=== PATIENT | male | born 1960 | race Caucasian/White ===

== ENCOUNTER 2021-10-24 07:24 | Emergency (ER) | payer OTHER ==
[~2021-10-24] VITALS: Ht 162.6 cm; Wt 65.8 kg
--- NOTE | 2021-10-24 07:25 | NUR ---
PT PADMA VIA GURNEY TO BED 10.
[2021-10-24 07:35] VITALS: BP 150/88
[2021-10-24] MEDS ORDERED: LIDOCAINE MPF 1% 5 ML ONE (09:31)
[2021-10-24] MEDS ORDERED: BACI1PAC6 TP (09:44)
[2021-10-24] MEDS ORDERED: ACET-10509 PO (09:44)
[2021-10-24] MEDS ORDERED: BACITRACIN OINT 500 UNITS/GM PKT TP ONE (09:45)
[2021-10-24] MEDS ORDERED: ACETAMINOPHEN EXTRA STRENGTH 500 MG TAB PO ONE (09:45)
--- NOTE | 2021-10-24 10:10 | NUR ---
CLEANED WOUND ON PT'S JAW/CHIN USING SALINE AND BETADINE SOLUTION. DRESSED WOUND USING 1X3 BANDAID. ERMD NOTIFIED.
[2021-10-24 10:23] VITALS: BP 137/70
--- NOTE | 2021-10-24 10:23 | NUR ---
Patient discharged with v/s stable. Written and verbal after care instructions given and explained. Patient alert, oriented and verbalized understanding of instructions. Ambulatory with steady gait. All questions addressed prior to discharge. ID band removed. Patient advised to follow up with PMD. Rx of MOTRIN, BACITRACIN given. Patient educated on indication of medication including possible reaction and side effects. Opportunity to ask questions provided and answered.
== END 2021-10-24 10:23 | disposition home or self-care (01) ==
LOC: MED 07:24
DX: S01.81XA Laceration without foreign body of other part of head, initial encounter (principal); S80.212A Abrasion, left knee, initial encounter; S80.211A Abrasion, right knee, initial encounter; N18.6 End stage renal disease; Z98.890 Other specified postprocedural states; Z79.2 Long term (current) use of antibiotics; Z79.899 Other long term (current) drug therapy; W01.198A Fall on same level from slipping, tripping and stumbling with subsequent striking against other object, initial encounter; Y92.89 Other specified places as the place of occurrence of the external cause; Y93.B9 Activity, other involving muscle strengthening exercises; Y99.8 Other external cause status
CPT/HCPCS: 12011; 70450; 72125; 99284; J2001

== ENCOUNTER 2021-10-30 08:42 | Emergency (ER) | payer OTHER ==
[~2021-10-30] VITALS: Ht 172.7 cm; Wt 66.7 kg
[~2021-10-30 08:42] MED LIST: ACET-10509 PO; BACI1PAC6 TP
[2021-10-30 08:54] VITALS: BP 173/90
--- NOTE | 2021-10-30 09:33 | NUR ---
NO NURSING INTERVENTIONS ORDERED NO ASSESSMENT DONE.
[2021-10-30 09:34] VITALS: BP 160/86
--- NOTE | 2021-10-30 09:35 | NUR ---
Patient discharged with v/s stable. Written and verbal after care instructions given FOR SUTURE REMOVAL and explained. Patient verbalized understanding. Ambulatory with steady gait. All questions addressed prior to discharge. Advised to follow up with PMD.
== END 2021-10-30 09:35 | disposition admitted as inpatient to this hospital (09) ==
LOC: MED 08:42
DX: S01.81XD Laceration without foreign body of other part of head, subsequent encounter (principal); Z48.02 Encounter for removal of sutures; I10 Essential (primary) hypertension; Z87.448 Personal history of other diseases of urinary system; Z98.890 Other specified postprocedural states; Z79.2 Long term (current) use of antibiotics; Z79.899 Other long term (current) drug therapy; W01.0XXD Fall on same level from slipping, tripping and stumbling without subsequent striking against object, subsequent encounter
CPT/HCPCS: 99281

== ENCOUNTER 2021-12-23 18:24 | Emergency (ER) | payer OTHER ==
[~2021-12-23] VITALS: Ht 170.2 cm; Wt 69.4 kg
[2021-12-23 18:40] VITALS: BP 127/73
--- NOTE | 2021-12-23 18:50 | NUR ---
TO ER BED 7
[2021-12-23] MEDS ORDERED: LIDOCAINE/EPI 1% 1:100000 20 ML VIAL INJ ONE (19:00)
--- NOTE | 2021-12-23 19:15 | NUR ---
Patient report given to KVNG Galvez. Transfer of care at this time.
[2021-12-23 19:22] LABS: BASOPHILS % (AUTO) 1.2 % (0.0-2.0); EOSINOPHILS # (AUTO) 0.1 K/uL (0-0.4); EOSINOPHILS % (AUTO) 2.6 % (0.0-4.0); HEMOGLOBIN 11.5 g/dL (12.0-18.0); LYMPHOCYTES # (AUTO) 0.2 K/uL (2.0-11.5); LYMPHOCYTES % (AUTO) 5.5 % (20.5-51.1); MEAN CORPUSCULAR HEMOGLOBIN 30 pg (27-31); MEAN CORPUSCULAR HGB CONC 33 g/dL (33-37); MEAN CORPUSCULAR VOLUME 90.1 fL (80-94); MONOCYTES # (AUTO) 0.3 K/uL (0.8-1.0); MONOCYTES % (AUTO) 9.7 % (1.7-9.3); NEUTROPHILS # (AUTO) 2.7 K/uL (1.8-7.7); PLATELET COUNT (AUTO) 72 K/uL (140-450); RED BLOOD CELL COUNT(AUTO) 3.89 MIL/uL (4.20-6.10); WHITE BLOOD COUNT (AUTO) 3.3 K/uL (4.8-10.8)
--- NOTE | 2021-12-23 19:22 | NUR ---
pt is awake and alert. all needs met at this time. md explained procedure at bedside, consent obtained.
--- NOTE | 2021-12-23 19:32 | NUR ---
ermd at bedside for procedure.
[2021-12-23 19:35] LABS: ALBUMIN 3.4 g/dL (3.4-5.0); ANION GAP 14.6 (8-16); CARBON DIOXIDE 29.3 mmol/L (21-32); POTASSIUM 4.9 mmol/L (3.5-5.1); TOTAL BILIRUBIN 0.9 mg/dL (0.0-1.0)
--- NOTE | 2021-12-23 19:41 | NUR ---
61 y/o male BIB self for c/o of abd distention. Pt states that he gets about 10 L removed from his abdomen each Monday and this past morning, they were only able to remove 5L d/t machine malfunction. He was instructed by his PCP to come to the ER for another paracentesis. Last paracentesis on 12/20. pmhx: cirrhosis of liver, ascites, ESRD on h/d av shunt to left arm. MWF. Gout allergies: NKA Home meds: midodrine, allopurinol.
[2021-12-23 19:50] LABS: CREATININE 6.6 mg/dL (0.6-1.3)
--- NOTE | 2021-12-23 20:51 | NUR ---
3 1/2 L drained from abd. pt tolerated well. vocalizes relief. denies pain. vss.
--- NOTE | 2021-12-23 22:04 | NUR ---
site cont to drain, 1l output.
--- NOTE | 2021-12-23 23:24 | NUR ---
pt is sitting up in bed. site continues to drain.
--- NOTE | 2021-12-24 01:00 | NUR ---
pt given food per request
--- NOTE | 2021-12-24 01:25 | NUR ---
total of 6L drained from pt.
[2021-12-24 01:30] VITALS: BP 107/75
--- NOTE | 2021-12-24 01:30 | NUR ---
Patient discharged with v/s stable. Written and verbal after care instructions given and explained. Patient verbalized understanding. Ambulatory with steady gait. All questions addressed prior to discharge. Advised to follow up with PMD.
== END 2021-12-24 01:30 | disposition home or self-care (01) ==
LOC: MED 18:24
DX: K74.60 Unspecified cirrhosis of liver (principal); R18.8 Other ascites; N18.6 End stage renal disease; Z99.2 Dependence on renal dialysis; Z98.890 Other specified postprocedural states; Z79.899 Other long term (current) drug therapy
CPT/HCPCS: 36415; 49083; 80053; 83880; 85025; 99285; J2001

== ENCOUNTER 2022-07-21 19:57 | Inpatient (IN) | payer OTHER ==
[~2022-07-21] VITALS: Ht 172.7 cm; Wt 52.6 kg
[~2022-07-21 19:57] MED LIST changes: +BACI-416 TP; -BACI1PAC6 TP
[2022-07-21 19:59] VITALS: BP 158/86
--- NOTE | 2022-07-21 20:06 | NUR ---
PT BIBA BLS ER BED 7
--- NOTE | 2022-07-21 20:06 | NUR ---
PT TO BED 7
--- NOTE | 2022-07-21 20:46 | NUR ---
PT BIB ALS RUN C/O DIFFUSE ABDOMINAL PAIN WITH N/V X2 DAYS
[2022-07-21 21:16] LABS: BASOPHILS # (AUTO) 0.1 K/uL (0.00-0.22); BASOPHILS % (AUTO) 2.8 % (0.0-2.0); EOSINOPHILS % (AUTO) 0.9 % (0.0-4.0); HEMATOCRIT 35.5 % (36-52); HEMOGLOBIN 11.5 g/dL (12.0-18.0); LYMPHOCYTES # (AUTO) 0.1 K/uL (2.0-11.5); LYMPHOCYTES % (AUTO) 2.4 % (20.5-51.1); MEAN CORPUSCULAR HEMOGLOBIN 29 pg (27-31); MEAN CORPUSCULAR HGB CONC 32 g/dL (33-37); MEAN CORPUSCULAR VOLUME 89.8 fL (80-94); MONOCYTES # (AUTO) 0.2 K/uL (0.8-1.0); MONOCYTES % (AUTO) 5.3 % (1.7-9.3); NEUTROPHILS # (AUTO) 3.2 K/uL (1.8-7.7); NEUTROPHILS % (AUTO) 88.6 % (42.2-75.2); PLATELET COUNT (AUTO) 284 K/uL (140-450); RED BLOOD CELL COUNT(AUTO) 3.95 MIL/uL (4.20-6.10); RED CELL DISTRIBUTION WIDTH 19.2 % (11.6-13.7); WHITE BLOOD COUNT (AUTO) 3.6 K/uL (4.8-10.8)
[2022-07-21 21:50] LABS: ALBUMIN 3.9 g/dL (3.4-5.0); CARBON DIOXIDE 25.9 mmol/L (21-32); CREATININE 1.2 mg/dL (0.6-1.3); POTASSIUM 5.9 mmol/L (3.5-5.1); TOTAL BILIRUBIN 0.3 mg/dL (0.0-1.0)
[2022-07-21] MEDS ORDERED: NACL 0.9% 1,000 ML IV ONE (22:10)
[2022-07-21] MEDS ORDERED: ONDANSETRON 4 MG/2 ML VIAL IVP ONE (22:10)
--- NOTE | 2022-07-22 00:06 | NUR ---
TO CT VIA [facility]
--- NOTE | 2022-07-22 00:26 | NUR ---
PT BACK FROM CT
[2022-07-22] MEDS ORDERED: CALCIUM GLUCONATE 10% 1,000 MG in NACL 0.9% 50 ML IV ONE (02:30)
--- NOTE | 2022-07-22 02:33 | NUR ---
anderson sent to lab and received by computer lab aide
[2022-07-22] MEDS ORDERED: NACL 0.9% 1,000 ML IV ONE (02:35)
[2022-07-22] MEDS ORDERED: KETOROLAC 15 MG/ML VIAL IVP ONE (02:40)
[2022-07-22] MEDS ORDERED: CALCIUM CHLORIDE 10% 100 MG/ML SYR IVP ONE (02:50)
--- NOTE | 2022-07-22 04:20 | NUR ---
Patient appears to be resting comfortably in bed. Vital Signs within normal limits. Respirations even and unlabored. Safety measures are in place and attached to the equipment monitor phototypesetting in place.
[2022-07-22] MEDS ORDERED: POTASSIUM CHLORIDE 10 MEQ TABER PO PRN (07:10)
[2022-07-22] MEDS ORDERED: ONDANSETRON 4 MG/2 ML VIAL IVP PRN (07:10)
[2022-07-22] MEDS ORDERED: DOCUSATE SODIUM 100 MG GELCAP PO PRN (07:10)
[2022-07-22] MEDS ORDERED: ZOLPIDEM 10 MG TAB PO PRN (07:10)
[2022-07-22] MEDS ORDERED: MAG SULF 2000 MG/WATER PREMIX 50 ML IV PRN (07:10)
[2022-07-22] MEDS ORDERED: MORPHINE SULFATE 2 MG/ML SYR IVP PRN (07:10)
[2022-07-22] MEDS ORDERED: LORazepam 2 MG/ML VIAL IVP PRN (07:10)
[2022-07-22] MEDS ORDERED: DEXTROSE 50% 50 ML SYR IVP PRN (07:15)
--- NOTE | 2022-07-22 07:16 | NUR ---
Pt report given to Shelbie CASTLE. Transfer of care at this time.
--- NOTE | 2022-07-22 07:20 | NUR ---
Recieved report from KVNG Christianson for transfer of care.
[2022-07-22] MEDS: MORPHINE SULFATE 2 MG/ML SYR IVP PRN ×3 (08:14→21:45)
[2022-07-22] MEDS: BLOOD GLUCOSE MONITORING 1 DEV DEV FS SCH ×4 (08:18→21:29)
[2022-07-22] MEDS: INSULIN LISPRO SLIDING SCALE 100 UNITS/ML VIAL SUBQ PRN (08:19)
[2022-07-22] MEDS ORDERED: MAGN400T61 PO (08:41)
[2022-07-22] MEDS ORDERED: VALG450T PO (08:41)
[2022-07-22] MEDS ORDERED: SODI650T2 PO (08:41)
[2022-07-22] MEDS ORDERED: FLUC200T PO (08:41)
[2022-07-22] MEDS ORDERED: DOCU-299 PO (08:41)
[2022-07-22] MEDS ORDERED: TACR1CAP17 PO (08:41)
[2022-07-22] MEDS ORDERED: PRED5TAB7 PO (08:41)
[2022-07-22] MEDS ORDERED: TAMS0.4C96 PO (08:41)
[2022-07-22] MEDS ORDERED: INSU100V3 SQ (08:41)
[2022-07-22] MEDS ORDERED: APIX5TAB PO (08:41)
[2022-07-22] MEDS ORDERED: K PH1TAB PO (08:41)
[2022-07-22] MEDS ORDERED: SOFO1TAB PO (08:41)
[2022-07-22] MEDS ORDERED: PANT40EC PO (08:41)
[2022-07-22] MEDS ORDERED: CEL250 PO (08:41)
[2022-07-22] MEDS ORDERED: SULF-58 PO (08:41)
[2022-07-22] MEDS ORDERED: ENTE0.5T PO (08:41)
[2022-07-22] MEDS ORDERED: MIRABULK PO (08:42)
--- NOTE | 2022-07-22 09:03 | NUR ---
PER DR BARRIOS, VERBAL ORDER TO COMPLETE ACCUCHECKS FOR PT, BUT DO NOT ADMINISTER INSULIN GOING FORWARD. PRIMARY NURSE PRESENT AND AWARE.
[2022-07-22] MEDS ORDERED: NACL 0.9% 1,000 ML IV SCH (09:10)
--- NOTE | 2022-07-22 09:25 | NUR ---
PATIENT HAS BEEN SCREENED AND CATEGORIZED HIGH NUTRITION RISK. PATIENT WILL BE SEEN WITHIN 1-2 DAYS OF ADMISSION. / REVIEWED BY GINA CHAPARRO RD
--- NOTE | 2022-07-22 10:56 | NUR ---
PT KEYS HANDED TO SISTER JAMAL PER PT REQUEST
--- NOTE | 2022-07-22 12:06 | NUR ---
# 14 FR Reed catheter with 10 ml utilizing sterile technique. Immediate return of 50 ml yellow urine noted. Bedside drainage bag placed below level of bladder. Pt tolerated procedure well.
--- NOTE | 2022-07-22 14:44 | NUR ---
Patient is laying in bed, respirations even and unlabored. All needs met by staff.
--- NOTE | 2022-07-22 15:47 | NUR ---
Dr. Wilson, evaluating patient at bedside. Recieved new orders for gatrographen small bowel series. And to call MD when results are back.
--- NOTE | 2022-07-22 15:47 | NUR ---
IV to right forearm flushed with 0.9% NS. Patient without signs or symptoms of infilltration; no pain, coolness, swelling noted. Morphine 2mg IVP PRN to be given
--- NOTE | 2022-07-22 15:48 | NUR ---
Patient states 7/10 abd pain at this time. Morphine 2mg IVP to be given
--- NOTE | 2022-07-22 18:20 | NUR ---
Dr. Philippe, cv tech, evaluating patient at bedside. Recieved verbal orders for repeat Chemistry. Addendum: 07/22/22 at 1847 by [email or web address] Recieved additional orders for D5W 2 amps of Sodium Bicarb 100 ml/hour for a total of 2 Liters and Albuterol Inhaler 10 mg Q2 hours apart for 3 doses.
[2022-07-22] MEDS ORDERED: ALBUTEROL 0.083% 2.5 MG/3 ML NEBU INH SCH (19:00)
--- NOTE | 2022-07-22 19:17 | NUR ---
Called for Dr. Philippe, geographic information systems manager for clarification of orders, Dr. Boudreaux contact printer dry film. paged.
--- NOTE | 2022-07-22 19:25 | NUR ---
Spoke to Dr. Boudreaux clarified orders for Albuterol. Recieved new orders for discontinue Albuterol and Lokelma 10 GMS PO one dose. Orders carried out.
[2022-07-22] MEDS: SODIUM BICARBONATE 8.4% 100 MEQ in DEXTROSE 5% 1,000 ML IV SCH (19:30)
[2022-07-22] MEDS ORDERED: SODIUM ZIRCONIUM CYCLOSILICATE 10 GM POWD.PACK PO ONE (19:35)
[2022-07-22 19:47] LABS: ALBUMIN 3.5 g/dL (3.4-5.0); ANION GAP 12.1 (8-16); CARBON DIOXIDE 23.9 mmol/L (21-32); CREATININE 1.3 mg/dL (0.6-1.3); TOTAL BILIRUBIN 0.5 mg/dL (0.0-1.0)
--- NOTE | 2022-07-22 20:40 | NUR ---
Patient will be admitted to care of Dr. Solo. Admited to Telemetry. Will go to room 126-B. Belongings list completed. Report to KVNG Wallace.
[2022-07-22] MEDS ORDERED: SODIUM ZIRCONIUM CYCLOSILICATE 10 GM POWD.PACK ONE (21:06)
--- NOTE | 2022-07-22 21:43 | NUR ---
The patient's care was reviewed and supervised by Meghan Lala RN, RN.
[2022-07-22 22:44] VITALS: BP 118/76
[2022-07-23] MEDS: ACETAMINOPHEN 325 MG TAB PO PRN ×2 (01:38→08:31)
[2022-07-23 04:18] VITALS: BP 150/95
[2022-07-23] MEDS: SODIUM BICARBONATE 8.4% 100 MEQ in DEXTROSE 5% 1,000 ML IV SCH (05:24)
[2022-07-23 06:27] LABS: ANION GAP 20.2 (8-16); CREATININE 1.3 mg/dL (0.6-1.3)
--- NOTE | 2022-07-23 06:35 | NUR ---
rn notes patient's last BS 170, remains NPO, running fluids at this time. VSS, denies pain at this time.
[2022-07-23 06:46] LABS: POTASSIUM 6.2 mmol/L (3.5-5.1)
[2022-07-23] MEDS: BLOOD GLUCOSE MONITORING 1 DEV DEV FS SCH ×4 (06:47→21:00)
[2022-07-23 06:51] LABS: BASOPHILS # (AUTO) 0.1 K/uL (0.00-0.22); BASOPHILS % (AUTO) 2.5 % (0.0-2.0); EOSINOPHILS % (AUTO) 0.6 % (0.0-4.0); HEMATOCRIT 34.7 % (36-52); HEMOGLOBIN 11.5 g/dL (12.0-18.0); LYMPHOCYTES # (AUTO) 0.1 K/uL (2.0-11.5); LYMPHOCYTES % (AUTO) 1.7 % (20.5-51.1); MEAN CORPUSCULAR HEMOGLOBIN 29 pg (27-31); MEAN CORPUSCULAR HGB CONC 33 g/dL (33-37); MEAN CORPUSCULAR VOLUME 88.8 fL (80-94); MONOCYTES # (AUTO) 0.2 K/uL (0.8-1.0); MONOCYTES % (AUTO) 5.1 % (1.7-9.3); NEUTROPHILS # (AUTO) 3.5 K/uL (1.8-7.7); NEUTROPHILS % (AUTO) 90.1 % (42.2-75.2); PLATELET COUNT (AUTO) 258 K/uL (140-450); RED CELL DISTRIBUTION WIDTH 18.7 % (11.6-13.7); WHITE BLOOD COUNT (AUTO) 3.9 K/uL (4.8-10.8)
--- NOTE | 2022-07-23 07:13 | NUR ---
ASSUMED CONTINUITY OF CARE. INITIAL ASSESSMENT DONE. SKIN TEAR ON RIGHT FOREARM NOTED. KEEP COMFORTABLE ON BED. CALL LIGHT WITHIN REACH.
[2022-07-23 08:00] VITALS: BP 165/96
--- NOTE | 2022-07-23 08:07 | NUR ---
CALLED RADIOTELEGRAPHER -TRISH REGARDING STAT ORDER OF DR. FOUNTAIN TO TRANSFER PT. TO [facility]. INFORMED CHARGE NURSE -ESTRELLA CALDERON.
--- NOTE | 2022-07-23 08:33 | NUR ---
PRAFUL OVIEDOLABOR CREW SUPERVISOR -TRISH AND INFORMED OF DR. FOUNTAIN STAT ORDER OF PT. TRANSFER TO [facility]. INFORMED CHARGE NURSE ESTRELLA COLE.
[2022-07-23 10:00] VITALS: BP 146/91
--- NOTE | 2022-07-23 10:07 | NUR ---
DR. SADLER CALLED AND ORDERED NGT TO LOW INTERMITTENT SUCTION, PT/PTT STAT, TYPE AND SCREEN STAT. INFORMED CHARGE NURSE ESTRELLA COLE
--- NOTE | 2022-07-23 10:15 | NUR ---
INSERTED NGT WITH ASSISTANCE FROM CHARGE NURSE ESTRELLA COLE. TOLERATED WELL. NO DISCOMFORT NOTED.
--- NOTE | 2022-07-23 10:38 | NUR ---
DR. ANTHONY CALLED AND ORDERED STAT BMP AND 1/2 NS AT 125ML/HR. INFORMED CHARGE NURSE ESTRELLA COLE.
[2022-07-23 11:12] LABS: PROTHROMBIN TIME 10.4 secs (10.8-13.4)
[2022-07-23] MEDS: NACL 0.45% 1,000 ML IV SCH ×2 (11:23→21:17)
--- NOTE | 2022-07-23 11:45 | NUR ---
CALLED DR. SADLER AND INFORMED THAT PT. WANTED TO REMOVE NGT. DR. SADLER SAID TO CALL DR. FOUNTAIN AND MADE HIM AWARE OF PT. REFUSAL OF NGT. INFORMED CHARGE NURSE ESTRELLA COLE.
--- NOTE | 2022-07-23 11:50 | NUR ---
CALLED DR. FOUNTAIN AND INFORMED THAT PT. WANTED TO REMOVED NGT AND DR. SADLER WAS MADE AWARE ALREADY.
--- NOTE | 2022-07-23 11:55 | NUR ---
EXPLAINED PT. ABOUT IMPORTANCE AND USE OF NGT. VERBALIZED UNDERSTANDING BUT INSISTED TO REMOVED NGT. REMOVED NGT. TOLERATED WELL. INFORMED CHARGE NURSE ESTRELLA COLE.
--- NOTE | 2022-07-23 11:56 | NUR ---
ORDER RECEIVED TO START ARRANGEMENTS FOR THE PATIENT TO TRANSFER TO [facility] FOR HLOC/SURGERY. CLINICAL PACKET FAXED TO [facility], PHONE FOR TRANSFER CENTER [phone], FAX [phone]. RN SPOKE WITH MEGHA AT [facility], SHE STATES SHE WILL START WORKING ON FINDING AN ACCEPTING MD AND BED. Addendum: 07/23/22 at 2100 by Ginger Marr RN RN RN AGAIN SPOKE WITH [facility], THEY STATE THAT THE CASE IS STILL BEING REVIEWED AND THAT THEY ARE WAITING FOR THEIR MD'S TO RESPOND.
[2022-07-23 12:00] VITALS: BP 141/95
[2022-07-23 12:58] LABS: ANION GAP 12.6 (8-16); CARBON DIOXIDE 26.3 mmol/L (21-32); CREATININE 1.2 mg/dL (0.6-1.3); POTASSIUM 4.9 mmol/L (3.5-5.1)
--- NOTE | 2022-07-23 13:13 | NUR ---
CALLED DR. ANTHONY AND INFORMED OF BMP STAT RESULTS THAT WAS DONE EARLIER. NA 138, K 4.9, BUN 39, AND CREAT 1.2 WAS READ OVER THE PHONE TO DR. ANTHONY. NO ORDER RECEIVED.
--- NOTE | 2022-07-23 13:47 | NUR ---
FOLLOW UP WITH GUEST SERVICES OFFICER -TRISH ABOUT PT. TRANSFER STAT TO [facility]. ACCORDING TO TRISH, SHE STILL WAITING [facility] TO CALL BACK REGARDING ROOM AVAILABILITY. INFORMED CHARGE NURSE ESTRELLA COLE.
[2022-07-23 16:00] VITALS: BP 148/89
--- NOTE | 2022-07-23 16:57 | NUR ---
PAGED DR. FOUNTAIN REGARDING DR. NAIR REQUEST TO CONTINUE PT. MEDICATIONS FOR TRANSPLANT -PROGRAF AND CELLCEPT. DR. FOUNTAIN PAGED BACK ORDERED TO CONTINUE PROGRAF AND CELLCEPT, NPO EXCEPT MEDS. INFORMED CHARGE NURSE ESTRELLA COLE.
--- NOTE | 2022-07-23 17:00 | NUR ---
INFORMED DR. FOUNTAIN THAT DIRECTOR RETIREMENT STILL WAITING FOR [facility] TO CALL BACK REGARDING ROOM AVAILABILITY.
--- NOTE | 2022-07-23 17:35 | NUR ---
FOLLOW UP AGAIN WITH MIDDLE SCHOOL FOOTBALL COACH -TRISH REGARDING PT. TRANSFER TO [facility]. PER TRISH, STILL WAITING FOR [facility] TO CALL BACK FOR ROOM AVAILABILITY. INFORMED CHARGE NURSE.
--- NOTE | 2022-07-23 19:20 | NUR ---
BEDSIDE REPORT GIVEN TO TAIWO COLE. IVF INFUSING WELL. IN STABLE CONDITION.
[2022-07-23 20:00] VITALS: BP 142/82
--- NOTE | 2022-07-23 20:00 | NUR ---
NURSE REPORT REPORT OBTAINED FROM [facility] NURSE SALINAS NICHOLS AND THIS NURSE ASSUMED CARE OF PATIENT. VSS. AFEB. NO C/O PAIN OR DISCOMFORT. PATIENT AWAITING TRANSFER TO HIGHER LEVEL OF CARE- [facility].
[2022-07-23] MEDS: MYCOPHENOLATE 250 MG CAP PO SCH (21:00)
[2022-07-23] MEDS ORDERED: TACROLIMUS 0.5 MG CAP PO SCH (21:00)
[2022-07-23] MEDS ORDERED: TACROLIMUS 0.5 MG CAP ONE (21:15)
--- NOTE | 2022-07-23 22:30 | NUR ---
COMMUNICATION DR SADLER HAD CALLED AND ASKED WHY THE PATIENT HAVE NOT BEEN TRANSFERRED TO [facility]. WHEN TALKING TO CHARGE NURSE, THE YARN TEXTURE MACHINE OPERATOR HAD SENT REQUEST TO [facility] AND NO ROOM HAVE BEEN GIVEN. SOON [facility] GIVES A ROOM, THEN TRANSPORTATION WILL BE SET UP. HE WANTED THE NURSING BRICK LOADER TO CALL HIM. NURSING BRICK LOADER . Addendum: 07/24/22 at 0232 by Agency 05 RN RN NURSING BRICK LOADER WAS CALLED TO CALL DR SADLER
[2022-07-24] VITALS: BP 145/89
--- NOTE | 2022-07-24 01:00 | NUR ---
COMMUNICATION DR SADLER OFFICE WAS CALLED AND MESSAGE WAS LEFT TO RETURN CALL FOR RESULT OF THE KUB OF ABD. WAITING FOR RETURN CALL FROM DR SADLER
[2022-07-24 04:00] VITALS: BP 145/96
[2022-07-24 06:12] LABS: HEMOGLOBIN 11.3 g/dL (12.0-18.0); MEAN CORPUSCULAR HEMOGLOBIN 29 pg (27-31); MEAN CORPUSCULAR HGB CONC 33 g/dL (33-37); MEAN CORPUSCULAR VOLUME 88.5 fL (80-94); PLATELET COUNT (AUTO) 242 K/uL (140-450); RED BLOOD CELL COUNT(AUTO) 3.84 MIL/uL (4.20-6.10); WHITE BLOOD COUNT (AUTO) 3.3 K/uL (4.8-10.8)
[2022-07-24] MEDS: BLOOD GLUCOSE MONITORING 1 DEV DEV FS SCH ×4 (06:19→20:51)
[2022-07-24 06:24] LABS: ANION GAP 13.9 (8-16); CARBON DIOXIDE 20.6 mmol/L (21-32); CREATININE 1.1 mg/dL (0.6-1.3); POTASSIUM 4.5 mmol/L (3.5-5.1)
--- NOTE | 2022-07-24 06:39 | NUR ---
NURSE NOTES AM BG 108. NO SLIDING SCALE INSULIN NEEDED. NO C/O PAIN OR DISCOMFORT. DR SADLER OFFICE NOTIFIED AND GIVEN RESULT OF KUB ABDOMEN.
[2022-07-24 07:28] LABS: BASOPHILS % (MANUAL) 0 % (0-2); EOSINOPHILS % (MANUAL) 0 % (0-4); LYMPHOCYTES % (MANUAL) 7 % (20-46); MONOCYTES % (MANUAL) 3 % (5-12)
--- NOTE | 2022-07-24 07:30 | NUR ---
NURSE REPORT REPORT GIVEN TO [facility] NURSE TRICE TO ASSUME CARE OF PATIENT. ALL QUESTIONS ANSWERED. TAIWO OVERTON RN
[2022-07-24 08:00] VITALS: BP 139/92
[2022-07-24] MEDS: MYCOPHENOLATE 250 MG CAP PO SCH ×2 (08:54→20:37)
--- NOTE | 2022-07-24 09:00 | NUR ---
PATIENT REQUEST FOOD TRAY, EXPLAINED IMPORTANCE OF MAINTAINING NPO STATUS, VERBALIZED UNDERSTANDING
--- NOTE | 2022-07-24 09:08 | NUR ---
RN SPOKE WITH DASHA AT THE [facility], REITERATED URGENCY OF TRANSFER. DASHA WILL PAGE HIS GENERAL SURGEON FOR ADMISSION REVIEW.
[2022-07-24] MEDS: TACROLIMUS 1 MG CAP PO SCH ×2 (10:09→20:37)
[2022-07-24] MEDS: NACL 0.45% 1,000 ML IV SCH (10:37)
--- NOTE | 2022-07-24 12:34 | NUR ---
PATIENT SEEN AND EXAMINED BY Antonette GUZMAN, REQUESTS PATIENT TO HAVE STAT KUB DONE, RADIOLOGY NOTIFIED
--- NOTE | 2022-07-24 15:53 | NUR ---
TELEPHONE CALL TO DR. SADLER TO NOTIFY HIM OF XRAY RESULTS, REQUEST PATIENT BE PLACED ON CLEAR LIQUID DIET AND ADVANCE TOLERATED
[2022-07-24 16:00] VITALS: BP 128/90
--- NOTE | 2022-07-24 17:30 | NUR ---
patient tolerated clear liquids, no c/o nausea or pain, order entered for full liquid diet at dinner
[2022-07-24 20:00] VITALS: BP 140/89
--- NOTE | 2022-07-24 20:00 | NUR ---
NURSE REPORT REPORT OBTAINED FROM THE DAY SHIFT NURSE TRICE AND THIS NURSE ASSUMED CARE OF PATIENT. VSS. AFEB. NO C/O PAIN OR DISCOMFORT. TAIWO OVERTON RN
--- NOTE | 2022-07-24 20:34 | NUR ---
07/24/22 RD INITIAL ASSESSMENT COMPLETED.PLEASE REFER TO NUTRITION ASSESSMENT UNDER CARE ACTIVITY FOR ESTIMATED NUTRITIONAL NEEDS. 1. CONTINUE FULL LIQUID DIET TOLERATED. WHEN/IF MEDICALLY APPROPRIATE, GRADUALLY ADVANCE TO RENAL DIET. 2. MONITOR PO INTAKE. 3. RD TO FOLLOW-UP 2-3 DAYS, HIGH RISK WALLY CASTRO RD
--- NOTE | 2022-07-24 21:33 | NUR ---
RECEIVED CALL FROM DR DOROTEO MELENDEZ THAT HE JUST SPOKE WITH THE TRANSPLANT DOCTOR AT [facility] AND THAT THE PATIENT IS ACCEPTED. WILL CALL [facility] TO FOLLOW UP. Addendum: 07/24/22 at 2203 by Maia Sloan RN RECEIVED CALL FROM DR DOROTEO MELENDEZ THAT HE JUST SPOKE WITH THE TRANSPLANT DOCTOR (DR LEA) AT [facility] AND THAT THE PATIENT GOT ACCEPTED. WILL CALL [facility] TO FOLLOW UP.
--- NOTE | 2022-07-24 21:38 | NUR ---
CALLED [facility] [phone], SPOKE WITH PHIL, HE SAID THAT PATIENT WILL NOT BE TRANSFERRED TONIGHT, PROBABLY BY TOMORROW. FIRST THEY NEED TO GET APPROVAL FROM THEIR COMBINATION SAW OPERATOR AND THEY ALSO NEED TO HAVE THE RETURN AGREEMENT SIGNED FIRST BEFORE THEY ASSIGN THE BED. PHIL GAVE INSTRUCTIONS TO INFORM [facility] CASE MANAGEMENT TO FOLLOW UP IN THE MORNING. WILL ENDORSE TO [employer] TOOLING MANAGER TO INFORM CASE MANAGEMENT. CALLED DR SADLER UPDATED REGARDINGTHE CASE.
[2022-07-25] VITALS: BP 144/90
[2022-07-25] MEDS: NACL 0.45% 1,000 ML IV SCH ×2 (01:08→13:39)
[2022-07-25 04:00] VITALS: BP 134/93
[2022-07-25 06:04] LABS: BASOPHILS # (AUTO) 0.1 K/uL (0.00-0.22); BASOPHILS % (AUTO) 3.7 % (0.0-2.0); EOSINOPHILS % (AUTO) 1.2 % (0.0-4.0); HEMOGLOBIN 10.4 g/dL (12.0-18.0); LYMPHOCYTES # (AUTO) 0.1 K/uL (2.0-11.5); LYMPHOCYTES % (AUTO) 5.3 % (20.5-51.1); MEAN CORPUSCULAR HEMOGLOBIN 30 pg (27-31); MEAN CORPUSCULAR HGB CONC 34 g/dL (33-37); MEAN CORPUSCULAR VOLUME 88.3 fL (80-94); MONOCYTES # (AUTO) 0.2 K/uL (0.8-1.0); MONOCYTES % (AUTO) 7.6 % (1.7-9.3); NEUTROPHILS # (AUTO) 1.9 K/uL (1.8-7.7); NEUTROPHILS % (AUTO) 82.2 % (42.2-75.2); PLATELET COUNT (AUTO) 196 K/uL (140-450); RED BLOOD CELL COUNT(AUTO) 3.51 MIL/uL (4.20-6.10); RED CELL DISTRIBUTION WIDTH 18.4 % (11.6-13.7); WHITE BLOOD COUNT (AUTO) 2.3 K/uL (4.8-10.8)
[2022-07-25 06:31] LABS: ANION GAP 10.8 (8-16); CARBON DIOXIDE 22.8 mmol/L (21-32); CREATININE 0.9 mg/dL (0.6-1.3); POTASSIUM 4.6 mmol/L (3.5-5.1)
--- NOTE | 2022-07-25 07:12 | NUR ---
NURSE REPORT REPORT GIVEN TO [facility] NURSE CARLOS TO ASSUME CARE OF PATIENT. SHE DIDN'T WANT THE PREVIOUS SBAR. ALL QUESTIONS ANSWERED. TAIWO OVERTON RN
[2022-07-25] MEDS: BLOOD GLUCOSE MONITORING 1 DEV DEV FS SCH ×3 (07:30→16:50)
--- NOTE | 2022-07-25 07:30 | NUR ---
RECIEVED PATIENT FROM CATTLE STICKER NURSE.PATIENT SLEEPING IN BED.CHEST RISING AND FALLING EVENLY.POC DISCUSSED WITH THE CATTLE STICKER NURSE.ALL SAFETY MEASURES IN PLACE.WILL CONTINUE TO MONITOR.
[2022-07-25 08:00] VITALS: BP 125/83
[2022-07-25] MEDS: MYCOPHENOLATE 250 MG CAP PO SCH (08:42)
[2022-07-25] MEDS: INSULIN LISPRO SLIDING SCALE 100 UNITS/ML VIAL SUBQ PRN (08:47)
[2022-07-25] MEDS: TACROLIMUS 1 MG CAP PO SCH (08:55)
--- NOTE | 2022-07-25 11:30 | NUR ---
DC PLANNING CALLED [facility] SPOKE WITH PHIL STATED HAS NO BED CM TO FOLLOW Addendum: 07/25/22 at 1624 by Aisha Mckeon RN DC PLANNING CALLED [facility] SPOKE WITH PHIL STATED STILL FULL CAPACITY AND NO BED AVAILABLE AND THEY PUT PATIENT ON WAITING LIST. DUE TO HISTORY OF TRANSPLANT AT [facility]. CM TO FOLLOW
[2022-07-25 12:00] VITALS: BP 134/87
[2022-07-25 17:18] VITALS: BP 134/87
[2022-07-25 17:23] VITALS: BP 134/87
--- NOTE | 2022-07-25 18:30 | NUR ---
DISCHARGED THE PATIENT TO HOME ,PER MD ORDER.ALL DISCHARGE INSTRUCTIONS GIVEN REGARDING THE FOLLOW UP.UBER DRIVE WAS BOOKED FOR THE PATIENT TO GO HOME.DISCHARGE PACKETS GIVE. ID BAND REMOVED.IV ,TELE MONITOR REMOVED.
== END 2022-07-25 18:30 | disposition home or self-care (01) | DRG 393 ==
LOC: MED 19:57 → MTU 07-22 02:35 → MMU 07-22 19:47
PROVIDERS: ADMIT Family Medicine; ATTEND Family Medicine
DX: K43.6 Other and unspecified ventral hernia with obstruction, without gangrene (principal); N17.0 Acute kidney failure with tubular necrosis; N13.30 Unspecified hydronephrosis; Z94.4 Liver transplant status; Z94.0 Kidney transplant status; E87.5 Hyperkalemia; Z20.822 Contact with and (suspected) exposure to COVID-19; E83.51 Hypocalcemia; E11.65 Type 2 diabetes mellitus with hyperglycemia; Z79.899 Other long term (current) drug therapy
CPT/HCPCS: 36415; 74018; 74250; 76705; 80048; 80053; 82948; 83605; 83690; 83735; 85025; 85610; 85730; 86886; 86900; 86901; 87081; 87635-QW; 93005; 96372; 96374; 96375; 99285; J1644; J1885; J2270; J2405; J3490; J7060; J7507; J7517; Q0092

== ENCOUNTER 2023-07-29 16:17 | Emergency (ER) | payer OTHER ==
[~2023-07-29] VITALS: Ht 172.7 cm; Wt 77.2 kg
[~2023-07-29 16:17] MED LIST changes: -ACET-10509 PO; +APIX5TAB PO; -BACI-416 TP; +CEL250 PO; +DOCU-299 PO; +ENTE0.5T PO; +FLUC200T PO; +INSU100V3 SQ; +K PH1TAB PO; +MAGN400T61 PO; +MIRABULK PO; +PANT40EC PO; +PRED5TAB7 PO; +SODI650T2 PO; +SOFO1TAB PO; +SULF-58 PO; +TACR1CAP17 PO; +TAMS0.4C96 PO; +VALG450T PO
[2023-07-29 16:36] VITALS: BP 136/92; PULSE 81; RESP 17; TEMP 98.2; O2SAT 95
[2023-07-29 18:11] VITALS: BP 154/93; PULSE 79; RESP 17; TEMP 98.2; O2SAT 95
== END 2023-07-29 17:41 | disposition home or self-care (01) ==
LOC: MED 16:17
DX: S01.01XA Laceration without foreign body of scalp, initial encounter (principal); I12.9 Hypertensive chronic kidney disease with stage 1 through stage 4 chronic kidney disease, or unspecified chronic kidney disease; E11.22 Type 2 diabetes mellitus with diabetic chronic kidney disease; N28.9 Disorder of kidney and ureter, unspecified; Z79.4 Long term (current) use of insulin; Z79.899 Other long term (current) drug therapy; W18.30XA Fall on same level, unspecified, initial encounter; Y93.89 Activity, other specified; Y92.89 Other specified places as the place of occurrence of the external cause; Y99.8 Other external cause status
CPT/HCPCS: 12001; 99282

== ENCOUNTER 2023-08-04 15:28 | Emergency (ER) | payer OTHER ==
[~2023-08-04] VITALS: Ht 172.7 cm; Wt 77.1 kg
[2023-08-04 16:30] VITALS: BP 137/101; PULSE 79; RESP 16; TEMP 98.4; O2SAT 95
== END 2023-08-04 16:51 | disposition home or self-care (01) ==
LOC: MED 15:28
DX: Z48.02 Encounter for removal of sutures (principal); E11.9 Type 2 diabetes mellitus without complications; I10 Essential (primary) hypertension; Z87.448 Personal history of other diseases of urinary system; Z79.899 Other long term (current) drug therapy; Z79.01 Long term (current) use of anticoagulants
CPT/HCPCS: 99281

== ENCOUNTER 2023-10-24 10:25 | Inpatient (IN) | payer OTHER ==
[~2023-10-24] VITALS: Ht 172.7 cm; Wt 63.5 kg
[2023-10-24 10:31] VITALS: BP 145/85; PULSE 106; RESP 20; TEMP 98.1; O2SAT 95
[2023-10-24 11:13] LABS: APPEARANCE,URINE CLEAR (CLEAR); BILIRUBIN,URINE 1+ (NEGATIVE); BLOOD, URINE TRACE-I (NEGATIVE); COLOR,URINE YELLOW (YELLOW); LEUKOCYTE ESTERASE ,URINE NEGATIVE (NEGATIVE); NITRITE, URINE NEGATIVE (NEGATIVE); PROTEIN,URINE TRACE (NEGATIVE); UGLUCOSE 3+ (NEGATIVE); UROBILINOGEN,URINE 0.2 EU/dL (0.2 - 1)
[2023-10-24] MEDS: ONDANSETRON 4 MG/2 ML VIAL IVP ONE (11:24)
[2023-10-24] MEDS: MORPHINE SULFATE 4 MG/ML SYR IVP ONE (11:25)
[2023-10-24] MEDS: NACL 0.9% 1,000 ML IV ONE ×2 (11:26→12:44)
[2023-10-24 11:34] LABS: MEAN CORPUSCULAR HEMOGLOBIN 26 pg (27-31); MEAN CORPUSCULAR HGB CONC 33 g/dL (33-37); MEAN CORPUSCULAR VOLUME 78.6 fL (80-94); PLATELET COUNT (AUTO) 235 K/uL (140-450); RED CELL DISTRIBUTION WIDTH 16.8 % (11.6-13.7); WHITE BLOOD COUNT (AUTO) 10.3 K/uL (4.8-10.8)
[2023-10-24 11:37] LABS: ICTOTEST NEGATIVE (NEGATIVE)
[2023-10-24 11:38] LABS: ALBUMIN 2.8 g/dL (3.4-5.0); ANION GAP 16.2 (8-16); CALCIUM 9.2 mg/dL (8.5-10.1); CARBON DIOXIDE 21.3 mmol/L (21-32); CREATININE 1.8 mg/dL (0.6-1.3); POTASSIUM 4.5 mmol/L (3.5-5.1); TOTAL BILIRUBIN 0.6 mg/dL (0.0-1.0); TOTAL PROTEIN, SERUM 6.5 g/dL (6.4-8.2)
[2023-10-24 11:44] LABS: LYMPHOCYTES % (MANUAL) 4 % (20-46); MONOCYTES % (MANUAL) 4 % (5-12)
[2023-10-24 11:45] LABS: PLATELET ESTIMATE ADEQUATE
[2023-10-24 13:15] LABS: BLOOD GAS PH 7.353 (7.35-7.45)
[2023-10-24 13:16] LABS: BLOOD GAS BASE EXCESS -7.7 mmol/L (-2.0-2.0); BLOOD GAS O2 SAT% 91.1 % (92.0-98.5); BLOOD GAS PCO2 29.9 mmHg (35-45)
[2023-10-24 13:17] LABS: BLOOD GAS HCO3 16.2 mmol/L (22-26)
[2023-10-24] MEDS ORDERED: AZITHROMYCIN 500 MG INJ VIAL IV ONE (14:47)
[2023-10-24] MEDS ORDERED: cefTRIAXone 1,000 MG VIAL ONE (14:48)
[2023-10-24 15:18] LABS: AMPHETAMINE, URINE NEGATIVE ng/ml (NEG <=1000); BARBITURATE, URINE NEGATIVE ng/ml (NEG <=200); BENZODIAZEPINE, URINE NEGATIVE ng/mL (NEG <=200)
[2023-10-24 15:19] LABS: CANNABINOID, URINE NEGATIVE ng/mL (NEG <=50); COCAINE, URINE NEGATIVE ng/mL (NEG <=300); OPIATE, URINE NEGATIVE ng/mL (NEG <=2000); PHENCYCLIDINE SCREEN,URINE NEGATIVE ng/mL (NEG <=25)
[2023-10-24] MEDS: AZITHROMYCIN 500 MG in DEXTROSE 5% 250 ML IV ONE (15:54)
[2023-10-24] MEDS ORDERED: ONDANSETRON 4 MG/2 ML VIAL IVP PRN (15:55)
[2023-10-24] MEDS ORDERED: ACETAMINOPHEN 325 MG TAB PO PRN (15:55)
[2023-10-24] MEDS ORDERED: POLYETHYLENE GLYCOL 17 GM/PKT PO PRN (16:15)
[2023-10-24] MEDS: DEXT 5% /NACL 0.9% 1,000 ML IV SCH (17:54)
[2023-10-24 19:40] VITALS: PULSE 77; RESP 18; O2SAT 96
[2023-10-24 19:48] VITALS: BP 131/85; PULSE 77; RESP 18; TEMP 98.6; O2SAT 96
[2023-10-24 20:00] VITALS: PULSE 77; PULSE 93; RESP 18; O2SAT 96
[2023-10-24] MEDS: MYCOPHENOLATE 250 MG CAP PO SCH (20:07)
[2023-10-24] MEDS: SODIUM BICARBONATE 650 MG TAB PO SCH (20:07)
[2023-10-24] MEDS: MAGNESIUM OXIDE 400 MG TAB PO SCH (20:07)
[2023-10-24] MEDS: MORPHINE SULFATE 2 MG/ML SYR IVP PRN (20:33)
[2023-10-24] MEDS ORDERED: PHOSPHORUS PO SCH (21:00)
[2023-10-24] MEDS: HYDROcodone/APAP 5/325 MG 1 TAB TAB PO PRN (23:17)
[2023-10-25] VITALS: BP 141/99; PULSE 89; PULSE 93; RESP 18; TEMP 98.1; O2SAT 96
[2023-10-25 04:00] VITALS: BP 135/88; PULSE 85; PULSE 89; RESP 20; TEMP 97.6; O2SAT 96
[2023-10-25 06:18] LABS: ANION GAP 12.1 (8-16); CALCIUM 8.5 mg/dL (8.5-10.1); CREATININE 1.4 mg/dL (0.6-1.3); POTASSIUM 4.1 mmol/L (3.5-5.1)
[2023-10-25 07:10] LABS: BASOPHILS % (AUTO) 0.3 % (0.0-2.0); EOSINOPHILS # (AUTO) 0.1 K/uL (0-0.4); EOSINOPHILS % (AUTO) 1.1 % (0.0-4.0); HEMATOCRIT 48.7 % (36-52); HEMOGLOBIN 15.7 g/dL (12.0-18.0); LYMPHOCYTES # (AUTO) 0.2 K/uL (2.0-11.5); LYMPHOCYTES % (AUTO) 3.1 % (20.5-51.1); MEAN CORPUSCULAR HEMOGLOBIN 26 pg (27-31); MEAN CORPUSCULAR HGB CONC 32 g/dL (33-37); MEAN CORPUSCULAR VOLUME 79.3 fL (80-94); MONOCYTES # (AUTO) 0.5 K/uL (0.8-1.0); MONOCYTES % (AUTO) 7.8 % (1.7-9.3); NEUTROPHILS # (AUTO) 6.1 K/uL (1.8-7.7); NEUTROPHILS % (AUTO) 87.7 % (42.2-75.2); PLATELET COUNT (AUTO) 194 K/uL (140-450); RED BLOOD CELL COUNT(AUTO) 6.14 MIL/uL (4.20-6.10); RED CELL DISTRIBUTION WIDTH 16.5 % (11.6-13.7)
[2023-10-25 08:00] VITALS: BP 144/96; PULSE 74; RESP 18; TEMP 97.7; O2SAT 93; O2SAT 96; O2SAT 98
[2023-10-25] MEDS: ENTECAVIR 0.5 MG TAB PO SCH (09:00)
[2023-10-25] MEDS ORDERED: TACROLIMUS 0.5 MG CAP PO SCH (09:00)
[2023-10-25] MEDS: AZITHROMYCIN 500 MG in DEXTROSE 5% 250 ML IV SCH (10:05)
[2023-10-25] MEDS: MYCOPHENOLATE 250 MG CAP PO SCH (10:05)
[2023-10-25] MEDS: TAMSULOSIN 0.4 MG CAP PO SCH (10:06)
[2023-10-25] MEDS: predniSONE 5 MG TAB PO SCH (10:52)
[2023-10-25 12:00] VITALS: BP 138/99; PULSE 95; RESP 18; TEMP 97.7; O2SAT 93
[2023-10-25] MEDS: NACL 0.9% 1,000 ML IV SCH (14:40)
[2023-10-25 16:00] VITALS: BP 140/96; PULSE 90; RESP 18; TEMP 97.5; O2SAT 96
[2023-10-25 20:00] VITALS: BP 128/92; PULSE 74; PULSE 97; RESP 18; TEMP 98.3; O2SAT 93
[2023-10-26] VITALS (7 sets, daily range): BP systolic 130–151; BP diastolic 94–105; PULSE 77–99; RESP 18–20; TEMP 97.5–98.3; O2SAT 92–96
[2023-10-26 05:14] LABS: BASOPHILS % (AUTO) 0.4 % (0.0-2.0); EOSINOPHILS # (AUTO) 0.1 K/uL (0-0.4); EOSINOPHILS % (AUTO) 1.2 % (0.0-4.0); HEMATOCRIT 47.6 % (36-52); HEMOGLOBIN 15.4 g/dL (12.0-18.0); LYMPHOCYTES # (AUTO) 0.1 K/uL (2.0-11.5); MEAN CORPUSCULAR HEMOGLOBIN 26 pg (27-31); MEAN CORPUSCULAR HGB CONC 32 g/dL (33-37); MONOCYTES # (AUTO) 0.5 K/uL (0.8-1.0); MONOCYTES % (AUTO) 7.2 % (1.7-9.3); NEUTROPHILS % (AUTO) 89.2 % (42.2-75.2); PLATELET COUNT (AUTO) 162 K/uL (140-450); RED BLOOD CELL COUNT(AUTO) 6.03 MIL/uL (4.20-6.10); RED CELL DISTRIBUTION WIDTH 16.8 % (11.6-13.7); WHITE BLOOD COUNT (AUTO) 6.8 K/uL (4.8-10.8)
[2023-10-26 05:42] LABS: ANION GAP 11.9 (8-16); CALCIUM 8.3 mg/dL (8.5-10.1); CARBON DIOXIDE 22.4 mmol/L (21-32); CREATININE 1.4 mg/dL (0.6-1.3); POTASSIUM 4.3 mmol/L (3.5-5.1)
[2023-10-27] VITALS: BP 152/103; PULSE 88; RESP 18; TEMP 97.1; O2SAT 98
[2023-10-27 04:00] VITALS: BP 145/105; PULSE 88; RESP 18; TEMP 97.9; O2SAT 92
[2023-10-27 05:31] LABS: BASOPHILS % (AUTO) 0.5 % (0.0-2.0); EOSINOPHILS # (AUTO) 0.1 K/uL (0-0.4); EOSINOPHILS % (AUTO) 1.4 % (0.0-4.0); HEMATOCRIT 48.9 % (36-52); LYMPHOCYTES # (AUTO) 0.2 K/uL (2.0-11.5); LYMPHOCYTES % (AUTO) 2.4 % (20.5-51.1); MEAN CORPUSCULAR HEMOGLOBIN 26 pg (27-31); MEAN CORPUSCULAR HGB CONC 33 g/dL (33-37); MEAN CORPUSCULAR VOLUME 78.8 fL (80-94); MONOCYTES # (AUTO) 0.5 K/uL (0.8-1.0); MONOCYTES % (AUTO) 6.9 % (1.7-9.3); NEUTROPHILS # (AUTO) 6.1 K/uL (1.8-7.7); NEUTROPHILS % (AUTO) 88.8 % (42.2-75.2); PLATELET COUNT (AUTO) 177 K/uL (140-450); RED BLOOD CELL COUNT(AUTO) 6.21 MIL/uL (4.20-6.10); RED CELL DISTRIBUTION WIDTH 16.9 % (11.6-13.7); WHITE BLOOD COUNT (AUTO) 6.8 K/uL (4.8-10.8)
[2023-10-27 05:50] LABS: ANION GAP 13.1 (8-16); CALCIUM 8.9 mg/dL (8.5-10.1); CARBON DIOXIDE 23.3 mmol/L (21-32); CREATININE 1.5 mg/dL (0.6-1.3); POTASSIUM 4.4 mmol/L (3.5-5.1)
[2023-10-27 08:00] VITALS: BP 141/88; PULSE 95; RESP 18; TEMP 97.5; O2SAT 99
[2023-10-27 16:00] VITALS: BP 152/104; PULSE 89; RESP 19; TEMP 98.1; O2SAT 95
[2023-10-27] MEDS ORDERED: DEXTROSE 50% 50 ML SYR IVP PRN (19:35)
[2023-10-27 20:00] VITALS: BP 156/105; PULSE 89; PULSE 97; RESP 24; TEMP 98.1; O2SAT 92
[2023-10-27] MEDS: BLOOD GLUCOSE MONITORING 1 DEV DEV FS SCH (20:25)
[2023-10-27] MEDS: INSULIN LISPRO SLIDING SCALE 100 UNITS/ML VIAL SUBQ PRN (20:29)
[2023-10-28 00:05] VITALS: BP 156/105; PULSE 89; PULSE 97; RESP 24; TEMP 98.1; O2SAT 92
[2023-10-28 05:47] LABS: BASOPHILS % (AUTO) 0.6 % (0.0-2.0); EOSINOPHILS # (AUTO) 0.1 K/uL (0-0.4); EOSINOPHILS % (AUTO) 1.3 % (0.0-4.0); HEMATOCRIT 51.9 % (36-52); HEMOGLOBIN 17.2 g/dL (12.0-18.0); LYMPHOCYTES # (AUTO) 0.2 K/uL (2.0-11.5); LYMPHOCYTES % (AUTO) 2.9 % (20.5-51.1); MEAN CORPUSCULAR HEMOGLOBIN 26 pg (27-31); MEAN CORPUSCULAR HGB CONC 33 g/dL (33-37); MEAN CORPUSCULAR VOLUME 79.4 fL (80-94); MONOCYTES # (AUTO) 0.5 K/uL (0.8-1.0); MONOCYTES % (AUTO) 6.6 % (1.7-9.3); NEUTROPHILS # (AUTO) 6.6 K/uL (1.8-7.7); NEUTROPHILS % (AUTO) 88.6 % (42.2-75.2); PLATELET COUNT (AUTO) 192 K/uL (140-450); RED BLOOD CELL COUNT(AUTO) 6.54 MIL/uL (4.20-6.10); RED CELL DISTRIBUTION WIDTH 16.8 % (11.6-13.7); WHITE BLOOD COUNT (AUTO) 7.4 K/uL (4.8-10.8)
[2023-10-28 07:20] LABS: ANION GAP 13.8 (8-16); CALCIUM 9.1 mg/dL (8.5-10.1); CARBON DIOXIDE 22.5 mmol/L (21-32); CREATININE 1.6 mg/dL (0.6-1.3); POTASSIUM 4.3 mmol/L (3.5-5.1)
[2023-10-28 08:00] VITALS: BP 146/110; PULSE 95; RESP 18; TEMP 97; O2SAT 93; O2SAT 94
[2023-10-28 12:00] VITALS: BP 166/118; PULSE 94; RESP 18; TEMP 97.2; O2SAT 94
[2023-10-28 16:00] VITALS: BP 148/91; PULSE 96; RESP 18; TEMP 97.8; O2SAT 95
[2023-10-28 20:00] VITALS: PULSE 96; RESP 18; TEMP 97.8; O2SAT 94; O2SAT 96
[2023-10-29 04:00] VITALS: BP 143/104; PULSE 96; RESP 18; TEMP 97.6; O2SAT 85
[2023-10-29 08:00] VITALS: BP 141/95; PULSE 87; PULSE 95; RESP 18; TEMP 97; TEMP 97.5; O2SAT 93; O2SAT 95
[2023-10-29] MEDS ORDERED: TRAM50TA3 PO (10:16)
[2023-10-29] MEDS ORDERED: MIRABULK PO (10:17)
[2023-10-29] MEDS ORDERED: [UNRECOGNIZED DRUG - CODE] (14:01)
[2023-10-29] MEDS ORDERED: AMOX1TAB8 PO (14:01)
[2023-10-31] MEDS ORDERED: AMOX1TAB8 PO (14:07)
[2023-10-31] MEDS ORDERED: TRAM50TA3 PO (14:07)
[2023-10-31] MEDS ORDERED: MIRABULK PO (14:07)
== END 2023-10-29 14:00 | disposition home or self-care (01) | DRG 698 ==
LOC: MED 10:25 → MTU 16:00
PROVIDERS: ADMIT Student in an Organized Health Care Education/Training Program; ATTEND Student in an Organized Health Care Education/Training Program
DX: T86.12 Kidney transplant failure (principal); J18.9 Pneumonia, unspecified organism; J96.00 Acute respiratory failure, unspecified whether with hypoxia or hypercapnia; N17.0 Acute kidney failure with tubular necrosis; Z94.4 Liver transplant status; D84.9 Immunodeficiency, unspecified; N13.30 Unspecified hydronephrosis; K40.90 Unilateral inguinal hernia, without obstruction or gangrene, not specified as recurrent; I10 Essential (primary) hypertension; E11.65 Type 2 diabetes mellitus with hyperglycemia; E83.51 Hypocalcemia; E87.5 Hyperkalemia; Z79.01 Long term (current) use of anticoagulants; Z79.899 Other long term (current) drug therapy; Z79.4 Long term (current) use of insulin
CPT/HCPCS: 36415; 36600; 71045; 74250; 80048; 80053; 80305; 81003; 82803; 82948; 83605; 83690; 84484; 85025; 87081; 93005; 96361; 96365; 96367; 96375; 99291; J0456; J0696; J2270; J2405; J7060; J7512; J7517

== ENCOUNTER 2023-10-30 16:20 | Emergency (ER) | payer OTHER ==
[~2023-10-30 16:20] MED LIST changes: +AMOX1TAB8 PO; +TRAM50TA3 PO; +[UNRECOGNIZED DRUG - CODE]
[2023-10-31] MEDS ORDERED: AMOX1TAB8 PO (14:07)
[2023-10-31] MEDS ORDERED: MIRABULK PO (14:07)
[2023-10-31] MEDS ORDERED: TRAM50TA3 PO (14:07)
== END 2023-10-30 17:00 | disposition left against medical advice (07) ==
LOC: MED 16:20
DX: Z76.0 Encounter for issue of repeat prescription (principal); Z53.21 Procedure and treatment not carried out due to patient leaving prior to being seen by health care provider